=== PATIENT | male | born 1995 | race Caucasian/White ===

== ENCOUNTER 2020-10-04 23:32 | Emergency (ER) | payer OTHER, BC, SELFPAY ==
[2020-10-04 23:47] VITALS: BP 137/73; PULSE 76; RESP 16; TEMP 36.8; O2SAT 100; BMI 28.7
[2020-10-05 00:15] LABS: Basophils # 0.1 K/mm3 (0-0.2); Basophils % 0.4 % (0.1-2.0); Eosinophils # 0.1 K/mm3 (0.0-0.4); Eosinophils % 0.6 % (0.1-12.0); Hematocrit 42.2 % (42.0-52.0); Hemoglobin 14.9 g/dL (14.1-18.0); Lymphocytes # 2.4 K/mm3 (0.7-4.5); Lymphocytes % 17.4 % (10-50); Mean Corpuscular HGB Conc 35.3 g/dL (31.8-35.4); Mean Corpuscular Hemoglobin 32.1 pg (27.0-31.2); Mean Corpuscular Volume 91.1 fl (80-94); Mean Platelet Volume 8.3 fl (7.4-10.4); Monocytes % 7.2 % (1.7-9.3); Neutrophils # 10.3 K/mm3 (1.8-7.8); Neutrophils % 74.4 % (37.0-80.0); Platelet Count 242 K/mm3 (142-424); Red Blood Count 4.63 M/mm3 (4.60-6.20); Red Cell Distribution Width 12.8 % (11.5-17.5); White Blood Count 13.8 K/mm3 (4.8-10.8)
[2020-10-05 00:17] LABS: Alanine Aminotransferase 17 U/L (12-78); Albumin Level 5.1 g/dl (3.5-5.0); Alkaline Phosphatase 55 U/L (38-126); Aspartate Amino Transferase 29 U/L (17-59); Bilirubin,Direct 0.4 mg/dl (0.0-0.4); Bilirubin,Indirect 0.8 mg/dL (0.0-0.9); Bilirubin,Total 1.2 mg/dl (0.2-1.3); Bilirubin,Unconjugated 0.9 mg/dL (0.0-1.1)
--- NOTE | 2020-10-05 00:19 | [facility].EDGENADL ---
ED Disposition Clinical Impression: Exposure to blood Disposition: Home, Self-Care Condition on Discharge: Good Additional Instructions: Infection control from [facility] will call you for follow-up. Referrals: Provider,Referral, [Primary Care Provider] - - Critical Care Critical Care Time: No Attestation: On 10/04/20, the high probability of a clinically significant, sudden or life threatening deterioration of the following system(s) required my full and direct attention, intervention and personal management. The time I documented below is in addition to time spent performing reported procedures but includes the following listed in this critical care notation. Medical Decision Making - Angus Inquiry Pt receiving controlled substance: No Vital Signs: 10/04/20 23:47 Temperature 98.2 F Temperature Source Oral Pulse Rate [Left] 76 Respiratory Rate 16 Blood Pressure [Left Arm] 137/73 Blood Pressure Mean [Left Arm] 94 02 Sat by Pulse Oximetry 100 Oxygen Delivery Method Room Air - Lab Data Lab Results 10/05/20 00:00: WBC 13.8 H, RBC 4.63, Hgb 14.9, Hct 42.2, MCV 91.1, MCH 32.1 H, MCHC 35.3, RDW 12.8, Plt Count 242, MPV 8.3, Neut % (Auto) 74.4, Lymph % (Auto) 17.4, [place] % (Auto) 7.2, Eos % (Auto) 0.6, Baso % (Auto) 0.4, Neut # (Auto) 10.3 H, Lymph # (Auto) 2.4, [place] # (Auto) 1.0, Eos # (Auto) 0.1, Baso # (Auto) 0.1 10/05/20 00:00: Total Bilirubin 1.2, Direct Bilirubin 0.4, Conjugated Bilirubin 0.0, Indirect Bilirubin 0.8, Unconjugated Bilirubin 0.9, AST 29, ALT 17, Alkaline Phosphatase 55, Total Protein 8.0, Albumin 5.1 H Result diagrams: 10/05/20 00:00 Orders (Tests/Meds): ORDERS Category Date Time Status HBsAg Screen Stat Lab 10/05/20 00:00 Received HIV Panel [id number] Stat Lab 10/05/20 00:00 Received Hepatitis B Surf Ab Quant Stat Lab 10/05/20 00:00 Received Hepatitis C Antibody Stat Lab 10/05/20 00:00 Received PT/PTT Stat Lab 10/05/20 00:00 Received General Adult HPI - General Chief complaint: Recheck/Abnormal Lab/Rx Stated complaint: Blood work Time Seen by Provider: 10/05/20 00:19 Mode of Arrival: Ambulatory Limitations: No Limitations Description of Symptoms (Recalled from ER Triage Doc. by RN): Officer exposed to Pt blood and pt states he is hep C positive. 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 He got blood on his hands and arms. Skin is intact, he does not have open wounds. His employer wanted him to have blood work done because he source patient is positive for hepatitis C. - Related Data Allergies Allergy/AdvReac Type Severity Reaction Status Date / Time No Known Allergies Allergy Verified 10/04/20 23:57 [facility] History - Hepatitis A Screen Drug use history?: No High risk sexual behaviors?: No History of sexually transmitted infection?: No Currently employed?: No Childcare worker?: No Do you have indoor plumbing?: Yes Do you have electricity?: Yes Attestation statement:: This patient has been screened for Hepatitis A risk factors. I have reviewed the patient's past medical history: Yes ROS Obtained: Yes Systems reviewed as appropriate & no additional complaints - Integumentary/Breasts Skin/Breast: Reports as per HPI, Denies bleeding lesions Physical Exam - General General appearance: alert, in no apparent distress - Respiratory Respiratory exam: Absent: respiratory distress - Cardiovascular Cardiovascular exam: Present: regular rate - Extremities Exam Extremities exam: Present: normal inspection - Neurological Exam Neurological exam: Present: alert, oriented X3 - Psychiatric Psychiatric exam: Present: normal affect, normal mood - Skin Skin exam: Present: warm, dry
[2020-10-05 00:21] LABS: Activated Partial Thrombo Time 24.6 seconds (22.8-30.6); Prothrombin Time 11.1 seconds (10.1-12.5)
[2020-10-05 00:27] LABS: INR 0.94 (0.9-1.1)
[2020-10-05 00:37] VITALS: BP 135/72; PULSE 76; RESP 16; TEMP 36.8; O2SAT 100
[2020-10-06 10:45] LABS: HIV Screen 4th Generation wRfx Non Reactive (Non Reactive)
[2020-10-06 12:33] LABS: Hepatitis B Surf Ab Quant >1000.0 mIU/mL (Immunity>9.9); Hepatitis B Surface Antigen Negative (Negative); Hepatitis C Antibody <0.1 s/co ratio (0.0-0.9)
== END 2020-10-05 00:40 | disposition home or self-care (01) ==
PROVIDERS: Emergency Provider Emergency Medicine
DX: Z77.21 Contact with and (suspected) exposure to potentially hazardous body fluids (principal)
CPT/HCPCS: 80076; 85025; 85610; 85730; 86703; 86706; 87340; 87380; 99282; G0432